=== PATIENT | male | born 1960 | race Caucasian/White ===

== ENCOUNTER 2017-01-01 07:28 | Day surgery (SDC) | payer BC ==
--- NOTE | ~2017-01-01 | EGD ---
EGD REPORT [facility] [address] [id number] NAME: PATRICIO HUFFMAN : 56 STATUS : [place] [facility] [place] [id number] AGE: 56 ADM/REG DATE : 01/01/17 MR#: [id number] REPORT SERV DATE: 01/01/17 DICTATED BY: LIBBY PORTER DATE: 01/01/17 REPORT STATUS : Draft TRANSCRIBED BY: [facility] DATE: 01/01/17 [facility]oscopy Center Patient Name: Patricio Huffman Date of : 1960 Attending MD: LIBBY PORTER MD Procedure Date No Time: 01/01/2017 Procedure: Colonoscopy Indications: High risk colon cancer surveillance: Personal history of non-advanced adenoma; last exam 2014. Patient Profile: Informed consent was obtained from the patient by me prior to the procedure. Risks, benefits, and alternatives were discussed including the risk of bleeding, perforation, infection, reaction to medicine, missed lesion, and cardiopulmonary complications. Referring MD: Brad Dumont MD Medicines: Monitored Anesthesia Care Complications: No immediate complications. Procedure: Pre-Anesthesia Assessment: - ASA Grade Assessment: III - A patient with severe systemic disease. After I obtained informed consent, the scope was passed under direct vision. Throughout the procedure, the patient's blood pressure, pulse, and oxygen saturations were monitored continuously. The CF [id number] was introduced through the anus and advanced to the cecum, identified by appendiceal orifice and ileocecal valve. The colonoscope was slowly withdrawn with careful examination all mucosal surfaces including specific attention around flexures and tip deflection behind folds; retroflexion performed in rectum. The colonoscopy was performed without difficulty. The patient tolerated the procedure well. The quality of the bowel preparation was adequate. The ileocecal valve, appendiceal orifice and rectum were photographed. Findings: A flat polyp was found in the proximal descending colon. The polyp was 8 mm in size. The polyp was removed with a cold biopsy forceps. Resection and retrieval were complete. The proximal transverse colon (evidence of a previous tattoo) appeared normal. Internal hemorrhoids were found during retroflexion and were moderate. Impression: - One 8 mm polyp in the proximal descending colon. Resected and retrieved. EGD REPORT [address] [address] NAME: PATRICIO HUFFMAN : 56 STATUS : [place] [facility] [place] [id number] AGE: 56 ADM/REG DATE : 01/01/17 MR#: [id number] REPORT SERV DATE: 01/01/17 DICTATED BY: LIBBY PORTER DATE: 01/01/17 REPORT STATUS : Draft TRANSCRIBED BY: [employer] DATE: 01/01/17 - The transverse colon is normal. - Internal hemorrhoids. Recommendation: - Patient has a contact number available for emergencies. The signs and symptoms of potential delayed complications were discussed with the patient. Return to normal activities tomorrow. Written discharge instructions were provided to the patient. - Regular diet. - Continue present medications. - Await pathology results. - Repeat colonoscopy for surveillance based on pathology results. Procedure Code(s): --- Professional --- 67614, Colonoscopy, flexible, proximal to splenic flexure; with biopsy, single or multiple Diagnosis Code(s): --- Professional --- D12.4, Benign neoplasm of descending colon K64.8, Other hemorrhoids Z86.010, Personal history of colonic polyps CPT copyright 2013 [employer]. All rights reserved. The codes documented in this report are preliminary and upon laser beam trim operator review may be revised to meet current compliance requirements. LIBBY PORTER MD 01/01/2017 9:48 AM This report has been signed electronically. Number of Addenda: 0 Note Initiated On: 01/01/2017 9:09 AM Scope Withdrawal Time 0 hours 15 minutes 54 seconds [address] [id number]
[~2017-01-01 07:28] MED LIST: B121000P IM; CHOL; FIBERCON PO; GLUCCHONDR PO; HYDROCHLOROT12.5 MG PO; HYDROCHLOROT25 MG PO; MULTIVITAMI1 PO; ZOCOR20 PO
== END 2017-01-01 23:59 | disposition home health service (06) ==
LOC: DMU 07:28
PROVIDERS: Internal Medicine Gastroenterology
PROC: 0DBM8ZX Excision of Descending Colon, Via Natural or Artificial Opening Endoscopic, Diagnostic (ICD-10-PCS; principal; 2017-01-01 08:30)
DX: K64.8 Other hemorrhoids (principal); I10 Essential (primary) hypertension; E78.00 Pure hypercholesterolemia, unspecified; G47.33 Obstructive sleep apnea (adult) (pediatric); K21.9 Gastro-esophageal reflux disease without esophagitis; Z86.010 Personal history of colon polyps; Z88.0 Allergy status to penicillin; Z88.8 Allergy status to other drugs, medicaments and biological substances; M13.88 Other specified arthritis, other site; Z98.890 Other specified postprocedural states
CPT/HCPCS: 88305